=== PATIENT | male | born 1990 | race Caucasian/White ===

== ENCOUNTER 2017-10-27 10:03 | Emergency (ER) | payer SELFPAY ==
[~2017-10-27] VITALS: Ht 188 cm; Wt 145.2 kg
[2017-10-27 10:07] VITALS: BP 119/79
== END 2017-10-27 11:05 | disposition home or self-care (01) ==
LOC: ED 10:50
DX: H66.91 Otitis media, unspecified, right ear (principal); H72.91 Unspecified perforation of tympanic membrane, right ear; F17.200 Nicotine dependence, unspecified, uncomplicated
CPT/HCPCS: 99283